=== PATIENT | male | born 1965 | race Caucasian/White ===

== ENCOUNTER 2018-07-11 13:34 | Emergency (ER) | payer OTHER ==
[~2018-07-11] VITALS: Ht 162.6 cm; Wt 89.6 kg
[2018-07-11 14:00] VITALS: BP 171/77
--- NOTE | 2018-07-11 14:05 | NUR ---
53 YO M BIB FAMILY FOR MEDICATION REFILL. PT STATES THAT HIS DIALYSIS DR SENT HIM OVER TO REFILL HIS WARAFARIN 2.5MG AND 4 MG AND HIS TERAZOSIN 5MG. PT RECEIVES DIALYSIS , , SAT. WENT YESTERDAY. NO COMPLAINTS. SHUNT LEFT ARM. HX DIALYSIS/KIDNEY FAILURE, HTN RX ATORVASTATIN, CLONIDINE, GLUCOSE, IPRATROPIUM, METOPROLOL, NIFEDIPINE, RENVELA, SENSIPAR, TERAZOSIN, WARFARIN
--- NOTE | 2018-07-11 14:08 | NUR ---
PT AMBULATED TO ER BED 01
[2018-07-11 15:56] LABS: PROTHROMBIN TIME 11.8 secs (10.8-13.4)
[2018-07-11 16:24] VITALS: BP 158/70
--- NOTE | 2018-07-11 16:24 | NUR ---
Patient discharged with v/s stable. Written and verbal after care instructions given and explained. Patient alert, oriented and verbalized understanding of instructions. Ambulatory with steady gait. All questions addressed prior to discharge. ID band removed. Patient advised to follow up with PMD. Rx of WARFARIN 2.5 MG AND 4 MG TABS AND TERAZOSIN given. Patient educated on indication of medication including possible reaction and side effects. Opportunity to ask questions provided and answered.
== END 2018-07-11 16:24 | disposition home or self-care (01) ==
LOC: MED 13:34
DX: I10 Essential (primary) hypertension (principal); N19 Unspecified kidney failure; Z76.0 Encounter for issue of repeat prescription; Z98.890 Other specified postprocedural states; Z99.2 Dependence on renal dialysis
CPT/HCPCS: 36415; 85610; 99283

== ENCOUNTER 2018-08-12 11:11 | Emergency (ER) | payer OTHER ==
[~2018-08-12] VITALS: Ht 165.1 cm; Wt 91.7 kg
[2018-08-12 11:18] VITALS: BP 99/50
--- NOTE | 2018-08-12 11:25 | NUR ---
PT AMBULATES TO BED 1
--- NOTE | 2018-08-12 11:28 | NUR ---
Patient being evaluated by physician at bedside.
--- NOTE | 2018-08-12 11:35 | NUR ---
PT PRESENTED TO THE ED WITH THE CHIEF C/O DIFFICULTY BREATHING S/P DIALYSIS A WHILE AGO. BREATHING NORMALLY AT THIS TIME. PLACED PT ON MONITOR. SPO2 94% IN ROOM AIR. HOB ELEVATED. LUNGS CLEAR. DENIES ANY PAIN. DENIES FEVER. DENIES ANY OTHER PROBLEM AT THIS TIME. VSS. ER AWARE.
[2018-08-12 11:59] LABS: BASOPHILS % (AUTO) 0.3 % (0.0-2.0); EOSINOPHILS % (AUTO) 0.9 % (0.0-4.0); HEMATOCRIT 27.8 % (36-52); HEMOGLOBIN 9.2 g/dL (12.0-18.0); LYMPHOCYTES # (AUTO) 0.2 K/uL (2.0-11.5); LYMPHOCYTES % (AUTO) 5.9 % (20.5-51.1); MEAN CORPUSCULAR HEMOGLOBIN 32 pg (27-31); MEAN CORPUSCULAR HGB CONC 33 g/dL (33-37); MEAN CORPUSCULAR VOLUME 98.1 fL (80-94); MONOCYTES # (AUTO) 0.3 K/uL (0.8-1.0); MONOCYTES % (AUTO) 6.5 % (1.7-9.3); NEUTROPHILS # (AUTO) 3.6 K/uL (1.8-7.7); NEUTROPHILS % (AUTO) 86.4 % (42.2-75.2); PLATELET COUNT (AUTO) 75 K/uL (140-450); RED BLOOD CELL COUNT(AUTO) 2.83 MIL/uL (4.20-6.10); RED CELL DISTRIBUTION WIDTH 17.8 % (11.6-13.7); WHITE BLOOD COUNT (AUTO) 4.2 K/uL (4.8-10.8)
[2018-08-12 12:14] LABS: ALBUMIN 3.6 g/dL (3.4-5.0); ANION GAP 13.9 (8-16); CARBON DIOXIDE 29.5 mmol/L (21-32); POTASSIUM 4.4 mmol/L (3.5-5.1); TOTAL BILIRUBIN 0.4 mg/dL (0.0-1.0)
[2018-08-12 12:16] LABS: CREATININE 6.6 mg/dL (0.7-1.3)
--- NOTE | 2018-08-12 13:11 | NUR ---
PT APPEARS TO BE RELAXED RESTING IN BED. DENIES ANY DIFFICULTY BREATHING OR PAIN AT THIS TIME.
--- NOTE | 2018-08-12 13:22 | NUR ---
Patient discharged with v/s stable. Written and verbal after care instructions given and explained. Patient alert, oriented and verbalized understanding of instructions. Ambulatory with steady gait. All questions addressed prior to discharge. ID band removed. Patient advised to follow up with PMD. Rx of ATROVENT given. Patient educated on indication of medication including possible reaction and side effects. Opportunity to ask questions provided and answered.
[2018-08-12 13:25] VITALS: BP 95/40
== END 2018-08-12 13:22 | disposition home or self-care (01) ==
LOC: MED 11:11
DX: R06.02 Shortness of breath (principal); I12.0 Hypertensive chronic kidney disease with stage 5 chronic kidney disease or end stage renal disease; N18.6 End stage renal disease; Z99.2 Dependence on renal dialysis
CPT/HCPCS: 36415; 71045; 80053; 85025; 99284; Q0092

== ENCOUNTER 2018-09-09 11:25 | Emergency (ER) | payer OTHER ==
[~2018-09-09] VITALS: Ht 165.1 cm; Wt 92.3 kg
[2018-09-09 11:35] VITALS: BP 131/70
--- NOTE | 2018-09-09 11:39 | NUR ---
PT RETURNED TO LOBBY IN STABLE CONDITION
--- NOTE | 2018-09-09 12:20 | NUR ---
PT AMBULATED TO ER BED 05
--- NOTE | 2018-09-09 12:25 | NUR ---
53 Y MALE BIB SELF C/O LEFT FOOT PAIN, S/P STEPPING ON NAIL YESTERDAY. NO BLEEDING AT THIS TIME. +CMS. PAIN 2/10 ACHING. VSS AT THIS TIME. AA0X4. PT CAN'T RECALL RECIEVING A TDAP VACCINE. BANDAID PLACED AT SITE. BED IS DOWN, LOCKED, BED RAIL X 1, ERMD NOTIFIED. MED HX: KIDNEY FAILURE/HTN. DIALYSIS ON //SAT. SHUNT LEFT ARM
--- NOTE | 2018-09-09 13:00 | NUR ---
vss at this time, aa0x4. pt sitting in bed
--- NOTE | 2018-09-09 13:05 | NUR ---
DR YUEN AT BEDSIDE
--- NOTE | 2018-09-09 13:35 | NUR ---
XRAY AT BEDSIDE
[2018-09-09 14:07] VITALS: BP 136/74
--- NOTE | 2018-09-09 14:07 | NUR ---
Patient discharged with v/s stable. Written and verbal after care instructions given and explained. Patient verbalized understanding. Ambulatory with steady gait. All questions addressed prior to discharge. Advised to follow up with PMD.
== END 2018-09-09 14:07 | disposition home or self-care (01) ==
LOC: MED 11:25
DX: S91.332A Puncture wound without foreign body, left foot, initial encounter (principal); I10 Essential (primary) hypertension; W45.0XXA Nail entering through skin, initial encounter; Y93.89 Activity, other specified; Y92.89 Other specified places as the place of occurrence of the external cause; Y99.8 Other external cause status
CPT/HCPCS: 73630; 90471; 90715; 99283; Q0092

== ENCOUNTER 2018-12-23 12:30 | Emergency (ER) | payer OTHER ==
[~2018-12-23] VITALS: Ht 162.6 cm; Wt 89.8 kg
--- NOTE | 2018-12-23 12:38 | NUR ---
PATIENT AMBULATED TO BED 06 AT THIS TIME.
[2018-12-23 12:40] VITALS: BP 146/73
[2018-12-23] MEDS ORDERED: CLON0.1T42 PO (12:48)
[2018-12-23] MEDS ORDERED: METO25TA PO (12:48)
[2018-12-23 14:10] VITALS: BP 140/70
--- NOTE | 2018-12-23 14:10 | NUR ---
Patient discharged with v/s stable. Written and verbal after care instructions given and explained. Patient verbalized understanding. Ambulatory with steady gait with cane. All questions addressed prior to discharge. Advised to follow up with PMD.
== END 2018-12-23 14:10 | disposition home or self-care (01) ==
LOC: MED 12:30
DX: I12.0 Hypertensive chronic kidney disease with stage 5 chronic kidney disease or end stage renal disease (principal); N18.6 End stage renal disease; R60.0 Localized edema; F17.210 Nicotine dependence, cigarettes, uncomplicated; Z99.2 Dependence on renal dialysis; Z98.890 Other specified postprocedural states; Z79.899 Other long term (current) drug therapy
CPT/HCPCS: 93005; 99283

== ENCOUNTER 2019-11-09 11:08 | Emergency (ER) | payer OTHER ==
[~2019-11-09] VITALS: Ht 165.1 cm; Wt 81.6 kg
[~2019-11-09 11:08] MED LIST: CLON0.1T42 PO; METO25TA PO
[2019-11-09 11:24] VITALS: BP 102/66
--- NOTE | 2019-11-09 11:25 | NUR ---
Patient transferred to bed 12 via wheelchair by tech.
--- NOTE | 2019-11-09 11:57 | NUR ---
Patient transferred to [facility] for further care.
--- NOTE | 2019-11-09 12:15 | NUR ---
54 Y/O MALE PRESENTS WITH GENERALIZED WEAKNESS AND HE BELIEVES "AN INFECTED DIALYSIS PORT" LOCATED RIGHT SUBCLAVIAN. PT STATES HE RECEIEVED DIALYSIS ON SATURDAY AND WAS TOLD THEN THAT PORT WAS CLOGGED AND INFECTED. DENIES ANY FEVER/CHILLS/N/V/D. PT STATES "I JUST DONT FEEL RIGHT". VSS. RESP EVEN AND UNLABORED. LUNG SOUNDS CLEAR IN BILAT LOBES.
--- NOTE | 2019-11-09 13:03 | NUR ---
Dr. Severino is evaluating the patient at bedside.
[2019-11-09 13:24] VITALS: BP 105/72
--- NOTE | 2019-11-09 13:45 | NUR ---
PT TO XRAY VIA WHEELCHAIR
--- NOTE | 2019-11-09 13:55 | NUR ---
PT BACK FROM XRAY
[2019-11-09 14:08] LABS: BASOPHILS % (AUTO) 0.3 % (0.0-2.0); EOSINOPHILS % (AUTO) 0.3 % (0.0-4.0); HEMATOCRIT 27.7 % (36-52); HEMOGLOBIN 8.8 g/dL (12.0-18.0); LYMPHOCYTES # (AUTO) 0.4 K/uL (2.0-11.5); LYMPHOCYTES % (AUTO) 5.1 % (20.5-51.1); MEAN CORPUSCULAR HEMOGLOBIN 28 pg (27-31); MEAN CORPUSCULAR HGB CONC 32 g/dL (33-37); MEAN CORPUSCULAR VOLUME 88.6 fL (80-94); MONOCYTES # (AUTO) 0.7 K/uL (0.8-1.0); MONOCYTES % (AUTO) 9.1 % (1.7-9.3); NEUTROPHILS # (AUTO) 6.4 K/uL (1.8-7.7); NEUTROPHILS % (AUTO) 85.2 % (42.2-75.2); PLATELET COUNT (AUTO) 82 K/uL (140-450); RED BLOOD CELL COUNT(AUTO) 3.12 MIL/uL (4.20-6.10); RED CELL DISTRIBUTION WIDTH 20.4 % (11.6-13.7); WHITE BLOOD COUNT (AUTO) 7.6 K/uL (4.8-10.8)
[2019-11-09 14:25] LABS: ALBUMIN 3.2 g/dL (3.4-5.0); ANION GAP 14.5 (8-16); POTASSIUM 4.5 mmol/L (3.5-5.1); TOTAL BILIRUBIN 0.7 mg/dL (0.0-1.0)
[2019-11-09 14:27] LABS: CREATININE 10.9 mg/dL (0.6-1.3)
--- NOTE | 2019-11-09 15:04 | NUR ---
ROAD TESTED PATIENT AND HOOKED UP TO PULSE OXIMETRY. PATIENT MAINTAINED 100% THROUGHOUT WALK
--- NOTE | 2019-11-09 15:45 | NUR ---
Patient does not wish to proceed with medical care recommended by DR ESPINOSA. Patient given information related to possible complications, up to and including , which could occur as a result of leaving hospital at this time. Patient verbalizes understanding of risks involved leaving against medical advice. Patient has signed AMA form. PT INSTRUCTED TO RETURN IF S/S WORSEN. PT INSTRUCTED THAT HIS TROPONIN LEVELS ARE NOT WNL
== END 2019-11-09 15:45 | disposition left against medical advice (07) ==
LOC: MED 11:08
DX: R79.89 Other specified abnormal findings of blood chemistry (principal); R06.02 Shortness of breath; N28.9 Disorder of kidney and ureter, unspecified; I10 Essential (primary) hypertension; Z98.890 Other specified postprocedural states; Z79.899 Other long term (current) drug therapy
CPT/HCPCS: 36415; 71045; 80053; 83605; 83690; 84484; 85025; 87040; 93005; 99291